=== PATIENT | male | born 1965 | race Caucasian/White ===

== ENCOUNTER 2020-05-10 18:24 | Emergency (ER) | payer BC ==
[2020-05-10] MEDS ORDERED: XYLOCAINE 1% HCL 20 ML MDV IJ ONE (18:25)
--- NOTE | 2020-05-10 18:45 | ERPHSYRPT ---
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 He has had a similar issue 10 years ago requiring surgical excision. He also was given a prescription in the past of Bactrim DS which helped. April 26 he noticed an area that was raised in the prior surgical site. It continued to get larger and then today opened up and began draining. Patient is not diabetic. Patient has an appointment next week with his primary physician who excised this last episode. He has not had fevers. There is some tenderness. Primarily he notices it at night when he lays down to sleep because of where it is located. Timing/Duration: day(s), worse Quality: painful Severity: mild Location: other (Upper back in the midline) Possible Causes: other (Epidermal inclusion cyst) Associated Symptoms: change in skin texture, No fever Travel Risk - International Travel Have you traveled outside of the country in past 3 weeks: No - Coronavirus Screening Are you exhibiting any of the following symptoms?: No Close contact with a COVID-19 positive Pt in past 14-21 Days: No - Review of Systems Constitutional: No Symptoms Eyes: No Symptoms Ears, Nose, & Throat: No Symptoms Respiratory: No Symptoms Cardiac: No Symptoms Abdominal/Gastrointestinal: No Symptoms Genitourinary Symptoms: No Symptoms Musculoskeletal: No Symptoms Skin: Other (Infected sebaceous cyst on back) Neurological: No Symptoms Psychological: No Symptoms Endocrine: No Symptoms Hematologic/Lymphatic: No Symptoms Immunological/Allergic: No Symptoms All Other Systems: Reviewed and Negative - Past Medical History Pertinent Past Medical History: Yes - Past Surgical History Past Surgical History: Yes - Physical Exam General Appearance: no apparent distress, alert, anxiety Eye Exam: PERRL/EOMI, eyes nml inspection Ears, Nose, Throat Exam: normal ENT inspection, moist mucous membranes Neck Exam: normal inspection, non-tender, supple, full range of motion Respiratory Exam: airway intact, No chest tenderness, No respiratory distress Gastrointestinal/Abdomen Exam: No tenderness Rectal Exam: not done Back Exam: normal inspection, normal range of motion, No CVA tenderness, No vertebral tenderness Extremity Exam: normal inspection, normal range of motion, pelvis stable Neurologic Exam: alert, oriented x 3, cooperative, inspector balance truing II-XII nml as tested Skin Exam: other (Infected, draining epidermal inclusion cyst upper back in the midline.) Lymphatic Exam: No adenopathy SpO2 Interpretation: normal Procedures - Additional Procedures Progress: This patient had open, draining abscess from an infected epidermal inclusion cyst. The opening was approximately 1/2 to 1 cm. We obtained a culture of this fluid. We were also able to express a significant amount of sebaceous material as well as pus. Patient specifically said his pain is significantly improved. Patient states that he has an appointment to see his physician in order to have this area excised. Patient tolerated this procedure well - Course Nursing assessment & vital signs reviewed: Yes - Progress Progress: improved, pain not gone completely, re-examined Counseled pt/family regarding: diagnosis, need for follow-up - Departure Departure Disposition: Home Clinical Impression: Epidermal inclusion cyst Condition: Stable Critical Care Time: No Additional Instructions: Keep area clean with soap and water. Do not place any antibiotic ointment overlying the opening. Change the bandage as needed. Keep your appointment with your physician. Call them next week on Tuesday morning to make arrangements for an earlier appointment if possible. Take your medication as prescribed. Prescriptions: Hydrocodone/APAP 5/325 [[place] 5/325 mg] 1 each PO Q8H PRN PRN #8 tablet MDD 8 PRN Reason: Pain Smz/Tmp Ds Tablet [Bactrim Ds Tablet] 1 udtab PO BID #14 tablet
[2020-05-10] MEDS ORDERED: BACTRIM DS TABLET PO STA (18:49)
[2020-05-10] MEDS ORDERED: Rocephin 1000 MG INJ IM ONE (18:49)
[2020-05-10] MEDS ORDERED: NORCO 5/325 MG PO ONE (18:50)
[2020-05-10 18:51] VITALS: BP 130/91; PULSE 89; O2SAT 98
[2020-05-10] MEDS ORDERED: BACTRIM DS TABLET PO ONE (18:55)
[2020-05-10] MEDS ORDERED: NORCO 5/325 MG ONE (18:55)
[2020-05-10] MEDS ORDERED: Rocephin 1000 MG INJ ONE (18:56)
== END 2020-05-10 19:30 | disposition home or self-care (01) ==
LOC: ED 18:24
DX: L72.0 Epidermal cyst (principal)
CPT/HCPCS: 87070; 96372; 99283; J0696; A9270-GY

== ENCOUNTER 2021-01-12 05:49 | Day surgery (SDC) | payer BC ==
[2021-01-12] MEDS ORDERED: Lactated Ringers 1,000 ML IV SCH (06:30)
[2021-01-12] MEDS ORDERED: DIPRIVAN 200 MG/20 ML IV ONE (06:58)
[2021-01-12] MEDS ORDERED: Xylocaine-Mpf 2% 5 Ml Vial ONE (06:58)
[2021-01-12 08:16] VITALS: O2SAT 97
[2021-01-12 08:36] VITALS: BP 122/83; PULSE 61
--- NOTE | 2021-01-12 13:01 | OP ---
SURGERY DATE/TIME: 01/12/2021 0704 PREOPERATIVE DIAGNOSES: 1) Gastroesophageal reflux disease. 2) Screening colonoscopy. POSTOPERATIVE DIAGNOSES: 1) Mild gastritis. 3) Normal colon. PROCEDURES: 1) Esophagogastroduodenoscopy. 2) Colonoscopy. SURGEON: Dr. Juarez. ANESTHESIA: Medications were given by the anesthesia department. HISTORY: The patient is a 55-year-old white male patient presenting now for endoscopic evaluation. He reports he has had gastroesophageal reflux disease for quite a while but has been taking omeprazole recently and has gotten much better. The patient was going to undergo a screening colonoscopy and it was felt a good time to take a look at his esophagus and stomach while we were there. The patient was appraised of the risks of the procedure including the risk of perforation, phlebitis, untoward reaction to medication, bleeding and missed lesions. The patient verbalized his understanding and desired to have the procedure performed. DESCRIPTION OF PROCEDURE: The patient was given the medications by the anesthesia department. He had continuous pulse oximetry, ECG monitoring, intermittent blood pressure monitoring and tidal CO2 monitoring during the examination. He was placed in the left lateral decubitus position. A bite block was placed and the flexible Olympus gastroscope was used to intubate the oropharynx. A view of the larynx obtained and was normal. The scope was easily introduced in the esophagus which appeared to be essentially normal throughout its length. The stomach was entered where normal gastric rugal folds were seen and these distended nicely with insufflation of air. The scope was passed along the greater curvature of the stomach to the antrum. The pylorus encountered and intubated. The duodenum inspected and found to be normal. The scope is withdrawn towards the stomach. A retroflex view was obtained of the lesser curvature, fundus and cardia regions of the stomach and these appeared to be essentially normal. The overall appearance of the stomach was that of a mild gastritis with patchy erythemia but no erosions or ulcerations noted. The scope is removed from the patient. Next, a digital rectal examination is performed and revealed normal anal sphincter tone and no masses and normal prostate. The flexible Olympus pediatric colonoscope was used to intubate the rectum. A view of the colon was developed sequentially to the cecum. Upon insertion and withdrawal, including a retroflex view in the rectum, no mucosal lesions were encountered. The scope was removed from the patient who tolerated the procedure well and sent back to OP recovery in good condition. The prep was noted to be fair to good.
== END 2021-01-12 08:45 | disposition home or self-care (01) ==
LOC: SDC 05:49
PROVIDERS: ATTEND Family Medicine
DX: Z12.11 Encounter for screening for malignant neoplasm of colon (principal); K21.9 Gastro-esophageal reflux disease without esophagitis; K29.70 Gastritis, unspecified, without bleeding; Z79.899 Other long term (current) drug therapy
CPT/HCPCS: J2704

== ENCOUNTER 2023-10-30 11:54 | Emergency (ER) | payer BC ==
--- NOTE | 2023-10-30 12:04 | ERPHSYRPT ---
- History of Present Illness Time Seen by Provider: 10/30/23 12:04 Source: patient, family Exam Limitations: no limitations Physician History: This is a 58-year-old white male patient who presents by private vehicle because of cough and fever that been present since last evening. Approximately 3 days ago patient "choked" on a hard taco. Ever since then he has had a cough. However, last evening his cough appeared to worsen and he had a fever. The cough is productive with thick white sputum. Patient arrives with no chest pain and no complaints of shortness of breath. He is afebrile and his room air oxygen saturation level is 98 to 99%. Patient has a history of gastroesophageal reflux disease and hyperlipidemia. He has no known drug allergies. Timing/Duration: day(s) (3) Cough Quality/Degree: moderate, productive cough (White thick sputum) Possible Cause: no prior episodes Modifying Factors: Improves With: coughing Associated Symptoms: fever, cough, No chest pain/soreness, No shortness of breath Allergies/Adverse Reactions: No Known Drug Allergies Allergy (Verified 10/30/23 12:03) Home Medications: Atorvastatin Calcium [Lipitor 20MG Tablet] 20 mg PO DAILY 01/12/21 [History] Hx Tetanus, Diphtheria Vaccination/Date Given: Yes Hx Influenza Vaccination/Date Given: Yes Hx Pneumococcal Vaccination/Date Given: No Travel Risk - International Travel Have you traveled outside of the country in past 3 weeks: No - Emerging Infectious Disease Are you exhibiting symptoms associated with any current EIDs: No - Review of Systems Constitutional: Fever Eyes: No Symptoms Ears, Nose, & Throat: No Symptoms Respiratory: Cough Cardiac: No Symptoms Abdominal/Gastrointestinal: No Symptoms Genitourinary Symptoms: No Symptoms Musculoskeletal: No Symptoms Skin: No Symptoms Neurological: No Symptoms Psychological: No Symptoms Endocrine: No Symptoms Hematologic/Lymphatic: No Symptoms Immunological/Allergic: No Symptoms All Other Systems: Reviewed and Negative - Past Medical History Pertinent Past Medical History: Yes Neurological History: No Pertinent History ENT History: No Pertinent History Cardiac History: Other Respiratory History: No Pertinent History Endocrine Medical History: No Pertinent History Musculoskeletal History: No Pertinent History GI Medical History: GERD History: No Pertinent History Psycho-Social History: No Pertinent History Male Reproductive Disorders: No Pertinent History Other Medical History: infrequent palpitations. COVID 05/02/20 - Past Surgical History Past Surgical History: Yes Neuro Surgical History: No Pertinent History Cardiac: No Pertinent History Respiratory: No Pertinent History Gastrointestinal: No Pertinent History Genitourinary: No Pertinent History Musculoskeletal: No Pertinent History Male Surgical History: Vasectomy Other Surgical History: inclusion cyst removed. carpal tunnel bilat - Social History Smoking Status: Never smoker Exposure to second hand smoke: No Drug Use: none Patient Lives Alone: No - Nursing Vital Signs Nursing Vital Signs: Initial Vital Signs Temperature 98.4 F 10/30/23 12:04 Pulse Rate 75 10/30/23 12:04 Respiratory Rate 22 10/30/23 12:04 Blood Pressure 158/95 10/30/23 12:04 O2 Sat by Pulse Oximetry 98 10/30/23 12:04 Pain Scale Pain Intensity 0 - Physical Exam General Appearance: no apparent distress, alert, obese Eye Exam: PERRL/EOMI, eyes nml inspection Ears, Nose, Throat Exam: normal ENT inspection, moist mucous membranes Neck Exam: normal inspection, non-tender, supple, full range of motion Respiratory Exam: rhonchi (Bilateral right worse than left), No chest tendern ess, No respiratory distress Cardiovascular Exam: regular rate/rhythm, normal heart sounds, normal peripheral pulses Gastrointestinal/Abdomen Exam: soft, normal bowel sounds, No tenderness Rectal Exam: not done Back Exam: normal inspection, normal range of motion, No CVA tenderness, No vertebral tenderness Extremity Exam: normal inspection, normal range of motion, pelvis stable Neurologic Exam: alert, oriented x 3, cooperative, 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 tested, normal mood/affect, nml cerebellar function, nml station & gait, sensation nml Skin Exam: normal color, warm, dry Lymphatic Exam: No adenopathy SpO2 Interpretation: normal O2 Delivery: Room Air - Course Nursing assessment & vital signs reviewed: Yes Ordered Tests: Active Orders 24 hr Category Date Time Status CHEST 1 VIEW (PORTABLE) Stat Exams 10/30/23 12:17 Taken Lab/Rad Data: Laboratory Results 10/30/23 10/30/23 Range/Units 12:33 12:33 Influenza Type A Ag NEGATIVE (NEGATIVE) Influenza Type B Ag NEGATIVE (NEGATIVE) RSV (PCR) NEGATIVE (NEGATIVE) SARS-CoV-2 (PCR) NEGATIVE (NEGATIVE) Group A Strep Antibody NOT DETECTED (NEGATIVE) - Progress Progress: unchanged Air Movement: fair Progress Note: 10/30/23 12:31 My medical decision making and the assignment of low to moderate complexity on this patient's medical workup includes reviewing past medical history, reviewed and patient's medication list, review of patient drug allergy list, history present illness and physical findings on examination. The workup in this patient includes viral swabs and group A strep swab as well as chest x-ray. Differential diagnosis includes but is not limited to viral illness, upper respiratory infection, pneumonia 10/30/23 13:08 I interpreted the preliminary report on this patient's chest x-ray. I do not appreciate an infiltrate at this time. 10/30/23 13:21 I interpreted the patient's laboratory data results. Based on the laboratory data results, patient does not have an acute, emergent medical issue. However, he is having a cough and intermittent fevers at home. We will treat him for upper respiratory infection and remotely sent a prescription of albuterol inhaler, prednisone and Levaquin to his pharmacy. Blood Culture(s) Obtained: No Counseled pt/family regarding: lab results, diagnosis, need for follow-up, rad results Medical Desision Making - Diagnostic Testing Diagnostic test were ordered, analyzed, and reviewed by me: Yes Radiological Interpretation: Interpreted by me - Risk of complications The pt has a mod risk of morbidity or mortality based on: Need for prescription drug management - Departure Departure Disposition: Home Clinical Impression: Upper respiratory infection Condition: Stable Critical Care Time: No Referrals: MARIA DEL CARMEN ORDOÑEZ NP [Primary Care Provider] - Follow up/PCP as directed Additional Instructions: Drink plenty of fluids. Take your medications as prescribed. Call your primary care provider tomorrow, 10/31/2023 to make arrangements for further evaluation and management including being evaluated in the next 5 to 7 days. Prescriptions: Prednisone 10 mg [Deltasone 10 mg] 10 mg PO TID #12 tablet Levofloxacin [Levaquin 500 MG Tablet] 500 mg PO DAILY #7 tablet Albuterol 8 gm Mdi Hfa [Ventolin Hfa MDI] 8 gm IH Q4H #1 unit
[2023-10-30 12:10] VITALS: BP 158/95; PULSE 75; RESP 22; TEMP 98.4; O2SAT 98
[2023-10-30 13:20] LABS: INFLUENZA A NEGATIVE (NEGATIVE); INFLUENZA B NEGATIVE (NEGATIVE); RESPIRATORY SYNCTIAL VIRUS NEGATIVE (NEGATIVE); SARS-CoV-2 Xpert Express NEGATIVE (NEGATIVE)
--- NOTE | 2023-10-30 20:37 | XRAY ---
Indication: Cough. Comparison: None Portable chest inflated and clear with incidental left upper lobe calcified granuloma. Heart and mediastinal structures within normal limits. Bony thorax intact with mild degenerative changes. Impression: Nonacute chest with chronic features.
== END 2023-10-30 13:31 | disposition home or self-care (01) ==
LOC: ED 11:54
DX: J06.9 Acute upper respiratory infection, unspecified (principal); R50.9 Fever, unspecified; R05.1 Acute cough; E78.5 Hyperlipidemia, unspecified; Z79.52 Long term (current) use of systemic steroids; Z79.899 Other long term (current) drug therapy
CPT/HCPCS: 0241U; 71045; 87651; 99283